=== PATIENT | male | born 1990 | race American Indian/Alaskan Native ===

== ENCOUNTER 2016-11-02 10:28 | Emergency (ER) | payer OTHER ==
[2016-11-02 10:43] VITALS: BP 116/82
[2016-11-02 11:36] LABS: Hematocrit 39.8 % (35.5-45.6); Hemoglobin 13.6 gm/dl (11.8-15.2); Mean Corpuscular HGB Conc 34 % (32-34); Mean Corpuscular Hemoglobin 32 pg (28-32); Mean Corpuscular Volume 93 fl (84-94); Platelet Count 199 K/mm3 (140-440); Red Blood Count 4.28 M/mm3 (3.65-5.03); Red Cell Distribution Width 13.1 % (13.2-15.2); White Blood Count 16.3 K/mm3 (4.5-11.0)
[2016-11-02 11:50] LABS: Alanine Aminotransferase 22 units/L (7-56); Albumin 4.4 g/dL (3.9-5); Albumin/Globulin Ratio 1.7 %; Alkaline Phosphatase 45 units/L (35-129); Anion Gap 16 mmol/L; BUN/Creatinine Ratio 31.66; Bilirubin,Total 0.6 mg/dL (0.1-1.2); Blood Urea Nitrogen 19 mg/dL (9-20); Calcium 9.1 mg/dL (8.4-10.2); Carbon Dioxide 22 mmol/L (22-30); Chloride 103.2 mmol/L (98-107); Glucose 104 mg/dL (75-100); Lipase 17 units/L (13-60); Sodium 137 mmol/L (137-145)
[2016-11-02 12:02] LABS: Basophils % (Manual) 0 % (0.0-1.8); Blastocytes % (Manual) 0 %; Eosinophils % (Manual) 0 % (0.0-4.3)
[2016-11-02 12:03] LABS: Diff Status Complete; RBC Morphology Normal
--- NOTE | 2016-11-05 01:06 | ED Elopement Review ---
ED Pt Elopement review - Results review Lab results: Laboratory Tests 11/02/16 11/02/16 11:18 11:18 WBC 16.3 H RBC 4.28 Hgb 13.6 Hct 39.8 MCV 93 MCH 32 MCHC 34 RDW 13.1 L Plt Count 199 Add Manual Diff Complete Total Counted 100 Seg Neutrophils % Operations And Maintenance Supervisor Seg Neuts % (Manual) 83.0 H Band Neutrophils % 9.0 Lymphocytes % (Manual) 3.0 L Reactive Lymphs % (Man) 0 Monocytes % (Manual) 4.0 Eosinophils % (Manual) 0 Basophils % (Manual) 0 Metamyelocytes % 1.0 Myelocytes % 0 Promyelocytes % 0 Blast Cells % 0 Nucleated RBC % Not Reportable Seg Neutrophils # Man 13.5 H Band Neutrophils # 1.5 Lymphocytes # (Manual) 0.5 L Abs React Lymphs (Man) 0.0 Monocytes # (Manual) 0.7 Eosinophils # (Manual) 0.0 Basophils # (Manual) 0.0 Metamyelocytes # 0.2 Myelocytes # 0.0 Promyelocytes # 0.0 Blast Cells # 0.0 WBC Morphology Not Reportable Hypersegmented Neuts Not Reportable Hyposegmented Neuts Not Reportable Hypogranular Neuts Not Reportable Smudge Cells Not Reportable Toxic Granulation Not Reportable Toxic Vacuolation Not Reportable Dohle Bodies Not Reportable Pelger-Huet Anomaly Not Reportable Ben Rods Not Reportable Platelet Estimate Appears normal Clumped Platelets Not Reportable Plt Clumps, EDTA Not Reportable Large Platelets Not Reportable Giant Platelets Not Reportable Platelet Satelliting Not Reportable Plt Morphology Comment Not Reportable RBC Morphology Normal Dimorphic RBCs Not Reportable Polychromasia Not Reportable Hypochromasia Not Reportable Poikilocytosis Not Reportable Anisocytosis Not Reportable Microcytosis Not Reportable Macrocytosis Not Reportable Spherocytes Not Reportable Pappenheimer Bodies Not Reportable Sickle Cells Not Reportable Target Cells Not Reportable Tear Drop Cells Not Reportable Ovalocytes Not Reportable Helmet Cells Not Reportable Leiva-Stamping Ground Bodies Not Reportable Saline Rings Not Reportable U[place]and Cells Not Reportable Bite Cells Not Reportable Crenated Cell Not Reportable Elliptocytes Not Reportable Acanthocytes (Spur) Not Reportable Rouleaux Not Reportable Hemoglobin C Crystals Not Reportable Schistocytes Not Reportable Malaria parasites Not Reportable Sergio Bodies Not Reportable Hem Pathologist Commnt No Sodium 137 Potassium 4.0 Chloride 103.2 Carbon Dioxide 22 Anion Gap 16 BUN 19 Creatinine 0.6 L Estimated GFR > 60 BUN/Creatinine Ratio 31.66 Glucose 104 H Calcium 9.1 Total Bilirubin 0.6 AST 22 ALT 22 Alkaline Phosphatase 45 Total Protein 7.0 Albumin 4.4 Albumin/Globulin Ratio 1.7 Lipase 17 - Call Back decision Pt Call Back Decision: No action required
== END 2016-11-02 12:20 | disposition left against medical advice (07) ==
LOC: ED 10:28
DX: R10.9 Unspecified abdominal pain (principal); R11.2 Nausea with vomiting, unspecified; R19.7 Diarrhea, unspecified; F17.200 Nicotine dependence, unspecified, uncomplicated; Z53.21 Procedure and treatment not carried out due to patient leaving prior to being seen by health care provider
CPT/HCPCS: 36415; 80053; 83690; 85007; 85025

== ENCOUNTER 2018-06-03 13:46 | Emergency (ER) | payer SELFPAY ==
[2018-06-03 13:55] VITALS: BP 116/79
[2018-06-03] MEDS ORDERED: BOOSTRIX IM ONE (14:37)
[2018-06-03] MEDS ORDERED: XYLOCAINE 1% 20 mL INFILTRATI ONE (14:37)
[2018-06-03] MEDS ORDERED: NORCO 7.5/325 PO ONE (14:37)
--- NOTE | 2018-06-03 15:02 | XRay Report ---
RIGHT FOREARM: History: Right forearm pain. AP and lateral views of the forearm demonstrate normal mineralization and contours for this patient's age. No destructive changes are noted and the adjacent soft tissues are normal. IMPRESSION: Normal right forearm.
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
--- NOTE | 2018-06-03 15:11 | Cat Scan Report ---
CT SCAN OF THE CERVICAL SPINE: HISTORY: Neck pain. TECHNIQUE: Contiguous 1.25 mm axial images of the cervical spine were obtained. Sagittal and coronal reformatted images. FINDINGS: There is normal alignment of the cervical spine. The body, pedicles and posterior ligaments appear normal. No evidence of fracture or subluxation is seen. The spinal canal appears normal. The prevertebral soft tissues appear normal. IMPRESSION: Unremarkable CT of the cervical spine. No acute process is noted.
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
== END 2018-06-03 15:52 | disposition home or self-care (01) ==
LOC: ED 13:46
DX: S01.01XA Laceration without foreign body of scalp, initial encounter (principal); S16.1XXA Strain of muscle, fascia and tendon at neck level, initial encounter; S56.911A Strain of unspecified muscles, fascia and tendons at forearm level, right arm, initial encounter; F17.200 Nicotine dependence, unspecified, uncomplicated; Y04.2XXA Assault by strike against or bumped into by another person, initial encounter; Y93.89 Activity, other specified; Y99.8 Other external cause status; Y92.89 Other specified places as the place of occurrence of the external cause
CPT/HCPCS: 70450; 72125; 90471; 90715

== ENCOUNTER 2019-04-13 00:55 | Emergency (ER) | payer SELFPAY ==
[2019-04-13 01:01] VITALS: BP 108/57
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
== END 2019-04-13 03:00 | disposition home or self-care (01) ==
LOC: ED 00:55
DX: R21 Rash and other nonspecific skin eruption (principal); L29.9 Pruritus, unspecified; F17.200 Nicotine dependence, unspecified, uncomplicated